=== PATIENT | female | born 1985 | race Caucasian/White ===

== ENCOUNTER → 2016-11-12 | Outpatient (REF) | payer OTHER ==
[~2016-11-12] MED LIST: /MOM400 PO; ACET50TA PO; ANUS2.5C2 TOP; DOCU10ELUD PO; IBUP600T26 PO; PRENTAB74 PO
== END ==
LOC: M SFHCWAGY 12:14
PROVIDERS: ATTEND Nurse Practitioner Family
DX: Z01.419 Encounter for gynecological examination (general) (routine) without abnormal findings (principal)

== ENCOUNTER → 2017-02-10 | Outpatient (CLI) | payer OTHER ==
[2017-02-10 18:13] LABS: FOLATE 20.2 NG/ML
[2017-02-10 19:31] LABS: FREE T4 0.88 NG/DL (0.76-1.46); THYROXINE (T4) 7.3 UG/DL (4.5-12.0)
== END ==
LOC: M WUC 13:51
PROVIDERS: ATTEND Psychiatry & Neurology Neurology
DX: Z13.29 Encounter for screening for other suspected endocrine disorder (principal); E53.9 Vitamin B deficiency, unspecified; R20.9 Unspecified disturbances of skin sensation

== ENCOUNTER 2017-10-30 09:21 | Day surgery (SDC) | payer OTHER ==
[2017-10-30 10:01] LABS: HEMATOCRIT 39.8 % (36.0-47.0); HEMOGLOBIN 13.6 g/dl (12.0-15.5); MEAN CORPUSCULAR HEMOGLOBIN 31.1 pg (27.0-33.0); MEAN CORPUSCULAR HGB CONC 34.2 g/dl (32.0-36.5); MEAN CORPUSCULAR VOLUME 90.9 fl (80.0-96.0); PLATELET COUNT, AUTOMATED 260 10^3/uL (150-450); RED BLOOD COUNT 4.38 10^6/uL (4.00-5.40); RED CELL DISTRIBUTION WIDTH 11.8 % (11.5-14.5); WHITE BLOOD COUNT 3.9 10^3/uL (4.0-10.0)
[2017-10-30 10:17] LABS: CONTROL LINE HCG INT CTR LINE PRESENT; HCG, SERUM QUALITATIVE NEGATIVE (NEGATIVE)
[2017-10-30] MEDS: LR 1,000 ML IV (10:39)
[2017-10-30] MEDS: BUPIVACAINE HCL 0.25% 30 ML VIAL As Ordered (10:40)
[2017-10-30] MEDS: ACETAMINOPHEN 650 MG SUPP As Ordered (10:57)
[2017-10-30] MEDS ORDERED: MIDAZOLAM INJ 2 MG/2 ML VIAL (J2250) As Ordered (11:17)
[2017-10-30] MEDS ORDERED: fentaNYL 100 MCG/2 ML INJECTION (J3010) As Ordered ×2 (11:44→11:48)
[2017-10-30] MEDS ORDERED: ONDANSETRON 4MG/2ML VIAL (J2405) As Ordered (11:48)
[2017-10-30] MEDS ORDERED: PROPOFOL 200 MG/20 ML VIAL As Ordered ×2 (11:48→12:05)
[2017-10-30] MEDS ORDERED: METOCLOPRAMIDE INJ 10MG/2ML VIAL (J2765) IV (12:45)
[2017-10-30] MEDS ORDERED: LR 1,000 ML IV (12:45)
[2017-10-30] MEDS ORDERED: ONDANSETRON 4MG/2ML VIAL (J2405) IV (12:45)
[2017-10-30] MEDS ORDERED: fentaNYL 100 MCG/2 ML INJECTION (J3010) IV (12:45)
[2017-10-30] MEDS ORDERED: PERCOCET 5MG/325MG TAB PO (12:45)
[2017-10-30] MEDS: PERCOCET 5MG/325MG TAB PO (13:15)
[2017-10-30] MEDS: KETOROLAC 30 MG/ML VIAL (J1885) IV (13:15)
== END 2017-10-30 14:15 | disposition home or self-care (01) ==
LOC: M SDC 09:21
DX: N80.6 Endometriosis in cutaneous scar (principal); F41.9 Anxiety disorder, unspecified; F32.9 Major depressive disorder, single episode, unspecified; Z79.899 Other long term (current) drug therapy
CPT/HCPCS: 13100

== ENCOUNTER → 2018-05-03 | Outpatient (CLI) | payer OTHER | LOC: M RAD 13:00 | DX: N92.4 Excessive bleeding in the premenopausal period (principal) | CPT/HCPCS: 76801 ==

== ENCOUNTER → 2018-05-04 | Outpatient (CLI) | payer OTHER ==
[2018-05-05 08:54] LABS: AB SCREEN (INDIRECT COOMBS)VIS 1 1
== END ==
LOC: M WUC 12:32
DX: O20.0 Threatened abortion (principal); Z3A.00 Weeks of gestation of pregnancy not specified
CPT/HCPCS: 36415

== ENCOUNTER → 2018-05-19 | Outpatient (CLI) | payer OTHER ==
[2018-05-19 18:34] LABS: BASO % 0.4 % (0.0-1.0); EOS # 0.1 10^3/uL (0.0-0.50); EOS % 1.2 % (0.0-3.0); HEMATOCRIT 39.2 % (36.0-47.0); HEMOGLOBIN 13.3 g/dl (12.0-15.5); IMMATURE GRANULOCYTE % 0.4 % (0-3.0); LYMPH # 1.4 10^3/uL (1.5-4.5); LYMPH % 20.3 % (24.0-44.0); MEAN CORPUSCULAR HEMOGLOBIN 32.4 pg (27.0-33.0); MEAN CORPUSCULAR HGB CONC 33.9 g/dl (32.0-36.5); MEAN CORPUSCULAR VOLUME 95.4 fl (80.0-96.0); MONO # 0.5 10^3/uL (0.0-0.8); NEUTROPHILS # 4.7 10^3/uL (1.8-7.7); NEUTROPHILS % 69.7 % (36.0-66.0); PLATELET COUNT, AUTOMATED 218 10^3/uL (150-450); RED BLOOD COUNT 4.11 10^6/uL (4.00-5.40); RED CELL DISTRIBUTION WIDTH 11.9 % (11.5-14.5); WHITE BLOOD COUNT 6.8 10^3/uL (4.0-10.0)
[2018-05-19 20:52] LABS: CHLAMYDIA DNA AMPLIFICATION NEGATIVE (NEGATIVE); GC DNA AMPLIFICATION NEGATIVE (NEGATIVE)
[2018-05-20 13:13] LABS: HIV 1&2 SCREEN CENTAUR NEGATIVE (NEGATIVE); RUBELLA IgG QUALITATIVE IMMUNE (IMMUNE)
[2018-05-21 10:22] LABS: HEPATITIS C VIRUS ABY INDEX < 0.0 INDEX (<0.8)
[2018-05-21 10:22] LABS: HBsAg Prenatal NEGATIVE (NEGATIVE)
== END ==
LOC: M SMT 14:12
DX: Z34.81 Encounter for supervision of other normal pregnancy, first trimester (principal); Z36.89 Encounter for other specified antenatal screening; Z3A.10 10 weeks gestation of pregnancy
CPT/HCPCS: 86762

== ENCOUNTER → 2018-06-18 | Outpatient (CLI) | payer OTHER | LOC: M RAD 10:30 | DX: O26.31 Retained intrauterine contraceptive device in pregnancy, first trimester (principal); Z97.5 Presence of (intrauterine) contraceptive device | CPT/HCPCS: 74019 ==

== ENCOUNTER 2018-06-22 12:18 | Day surgery (SDC) | payer OTHER ==
[2018-06-22] MEDS: LR 1,000 ML IV (12:30)
[2018-06-22 12:50] LABS: HEMATOCRIT 41.4 % (36.0-47.0); HEMOGLOBIN 14.3 g/dl (12.0-15.5); MEAN CORPUSCULAR HEMOGLOBIN 31.7 pg (27.0-33.0); MEAN CORPUSCULAR HGB CONC 34.5 g/dl (32.0-36.5); MEAN CORPUSCULAR VOLUME 91.8 fl (80.0-96.0); PLATELET COUNT, AUTOMATED 190 10^3/uL (150-450); RED BLOOD COUNT 4.51 10^6/uL (4.00-5.40); RED CELL DISTRIBUTION WIDTH 11.5 % (11.5-14.5); WHITE BLOOD COUNT 4.2 10^3/uL (4.0-10.0)
[2018-06-22] MEDS ORDERED: PROPOFOL 200 MG/20 ML VIAL As Ordered (13:31)
[2018-06-22] MEDS ORDERED: dexameTHASONE 4 MG/ML 1ML VIAL (J1100) As Ordered (13:32)
[2018-06-22] MEDS ORDERED: LIDOCAINE 2% INJ 100 MG/5 ML SDV (FOR ANES.) As Ordered (13:32)
[2018-06-22] MEDS ORDERED: KETOROLAC 60 MG/2 ML VIAL (J1885) As Ordered (13:32)
[2018-06-22] MEDS ORDERED: ONDANSETRON 4MG/2ML VIAL (J2405) As Ordered (13:32)
[2018-06-22] MEDS ORDERED: MIDAZOLAM INJ 2 MG/2 ML VIAL (J2250) As Ordered (13:32)
[2018-06-22] MEDS ORDERED: fentaNYL 100 MCG/2 ML INJECTION (J3010) As Ordered ×2 (13:34→14:11)
[2018-06-22] MEDS: LIDOCAINE 1% SDV INJ 30 ML VIAL As Ordered (14:28)
[2018-06-22] MEDS ORDERED: ONDANSETRON 4MG/2ML VIAL (J2405) IV (15:00)
[2018-06-22] MEDS ORDERED: fentaNYL 100 MCG/2 ML INJECTION (J3010) IV (15:00)
[2018-06-22] MEDS ORDERED: LR 1,000 ML IV ×2 (15:00)
[2018-06-22] MEDS: ACETAMINOPHEN 500 MG TAB PO (15:05)
[2018-06-22] MEDS: DOXYCYCLINE HYCLATE 100 MG TAB PO (15:40)
== END 2018-06-22 16:00 | disposition home or self-care (01) ==
LOC: M SDC 16:00
DX: O02.1 Missed abortion (principal); K21.9 Gastro-esophageal reflux disease without esophagitis; F41.9 Anxiety disorder, unspecified; F32.9 Major depressive disorder, single episode, unspecified; Z79.899 Other long term (current) drug therapy
CPT/HCPCS: 59820

== ENCOUNTER 2019-05-24 06:05 | Day surgery (SDC) | payer OTHER ==
[~2019-05-24] VITALS: Ht 157.5 cm; Wt 88.0 kg
[2019-05-24] VITALS (7 sets, daily range): BP systolic 112–137; BP diastolic 55–83
[~2019-05-24 06:05] MED LIST changes: -/MOM400 PO; -ACET50TA PO; -DOCU10ELUD PO; +DOCU5LIQ PO; +HEPARIN SOD (PORCINE) 5000 UNITS/ML VIAL SQ ONE; +LR 1,000 ML IV ONE; +MAPA500T17 PO; +MILK10SU PO; +ORTH1TAB8 PO; +PERC5TAB12 PO; +TRAZ-252 PO; +VITA1TAB27 PO; +ZOLO100T PO; +ceFAZolin SOD 1 GM in D5W MINI-BAG PLUS 50 ML IV ONE
[2019-05-24] MEDS ORDERED: IBUP200C25 PO (06:50)
[2019-05-24] MEDS ORDERED: ALL10TAB2 PO (06:50)
[2019-05-24] MEDS ORDERED: LIDOCAINE 2% INJ 100 MG/5 ML SDV (FOR ANES.) As Ordered ONE (06:57)
[2019-05-24] MEDS ORDERED: dexameTHASONE 4 MG/ML 1ML VIAL (J1100) As Ordered ONE (06:57)
[2019-05-24] MEDS ORDERED: ONDANSETRON 4MG/2ML VIAL (J2405) As Ordered ONE (06:57)
[2019-05-24] MEDS ORDERED: ROCURONIUM BROMIDE 50 MG/5 ML VIAL As Ordered ONE ×3 (06:57→09:16)
[2019-05-24] MEDS ORDERED: PROPOFOL 200 MG/20 ML VIAL As Ordered ONE (06:57)
[2019-05-24] MEDS ORDERED: fentaNYL 250 MCG/5 ML INJECTION (J3010) As Ordered ONE (07:00)
[2019-05-24] MEDS ORDERED: MIDAZOLAM INJ 2 MG/2 ML VIAL (J2250) As Ordered ONE (07:01)
[2019-05-24] MEDS ORDERED: LIDOCAINE 1% MDV 20ML VIAL As Ordered ONE (07:15)
[2019-05-24] MEDS ORDERED: BACITRACIN PWD 50,000 UNITS VIAL As Ordered ONE (07:15)
[2019-05-24] MEDS ORDERED: EPINEPHrine INJ 1 MG/ML 1ML AMP As Ordered ONE (07:15)
[2019-05-24] MEDS ORDERED: BUPIVACAINE LIPOSOME/PF 1.3% 20ML VIAL (13.3MG/ML)(EXPAREL)(C9290 PER1MG) As Ordered ONE (07:15)
[2019-05-24] MEDS ORDERED: LACRILUBE (AKWA TEARS) OPHTH OINT 3.5 GM As Ordered ONE (07:54)
[2019-05-24] MEDS ORDERED: ACETAMINOPHEN 1000MG 100ML IV BTL (OFIRMEV) (J0131 PER 10MG) As Ordered ONE (07:55)
[2019-05-24] MEDS ORDERED: SUGAMMADEX SODIUM 500 MG/5 ML VIAL (BRIDION) As Ordered ONE (08:51)
[2019-05-24] MEDS ORDERED: ePHEDrine SULFATE 25 MG/5 ML(5MG/ML) SYRINGE As Ordered ONE (09:52)
[2019-05-24] MEDS ORDERED: fentaNYL 100 MCG/2 ML INJECTION (J3010) As Ordered ONE (10:06)
[2019-05-24] MEDS ORDERED: HYDROmorphone HCL 2 MG/ML 1ML VIAL (J1170) As Ordered ONE (10:38)
[2019-05-24] MEDS ORDERED: ONDANSETRON 4MG/2ML VIAL (J2405) IV PRN ×2 (11:00→12:00)
[2019-05-24] MEDS ORDERED: LR 1,000 ML IV SCH (11:00)
[2019-05-24] MEDS ORDERED: HYDROMORPHONE HCL 0.5 MG/ 0.5 ML SYRINGE (J1170 PER 1) IV PRN (11:00)
--- NOTE | 2019-05-24 11:05 | POST-OPPD ---
Postoperative Procedure Note Date Of Procedure: May 24, 2019 PREOPERATIVE DIAGNOSIS: Symptomatic macromastia POSTOPERATIVE DIAGNOSIS: same FINDINGS: Large breasts PROCEDURE: Bilateral breast reduction SURGEON: Dr Madrid FITTER'S ASSISTANT: Dr Marin ANESTHESIA: General SPECIMENS: Right breast 758g, Left breast 773g ESTIMATED BLOOD LOSS: 100cc REPLACED: none DRAINS: 10 mm JÚNIOR drains x 2. COMPLICATIONS: none POSTOPERATIVE CONDITION: stable REJI MADRID DO May 24, 2019 11:05
[2019-05-24] MEDS: fentaNYL 100 MCG/2 ML INJECTION (J3010) IV PRN ×4 (11:25→11:40)
[2019-05-24] MEDS: PERCOCET 5MG/325MG TAB PO PRN ×4 (11:30→21:26)
[2019-05-24] MEDS: MORPHINE 4 MG/ML 1ML VIAL/SYRINGE (J2270) IV PRN ×3 (14:12→23:53)
[2019-05-24] MEDS: LR 1,000 ML IV SCH (14:12)
--- NOTE | 2019-05-24 14:19 | RO ---
aDATE OF OPERATION: 05/24/2019 PREOPERATIVE DIAGNOSIS: Symptomatic macromastia. POSTOPERATIVE DIAGNOSIS: Symptomatic macromastia. PROCEDURE: Bilateral breast reduction. ATTENDING SURGEON: Debbie Cabrera DO EARLY HEAD START TEACHER: Brandie Marin DO ANESTHESIA: General. SPECIMENS SENT: Right breast 758 grams and left breast 773 grams. BLOOD LOSS: 100 mL. No replacement needed. DRAINS: Two 10-mm Mihir-Aguilar drains. No complications. DESCRIPTION OF PROCEDURE: This is a 34-year-old female who has significant upper back pain and permanent changes with her posture due to her large breasts. The patient has failed with the medical management, and she wished to have her breasts surgically reduced. All risks and benefits and alternatives discussed with the patient in detail, and she is ready to proceed. On the day of surgery, she was marked in the upright position. Her nipple areolar complex from the sternal notch is 36 cm bilaterally. Inframammary fold (IMF) is at 22 cm. So, she was marked according to superomedial pedicle. Informed consent was confirmed, and then she was brought into the operating room. Placed in supine position. Preoperative antibiotics are given. Sequential stockings placed in the lower calves. General anesthesia was induced. She was prepped and draped in the usual sterile fashion. 5000 units of Heparin subcutaneous were given, as well. We started our procedure on the right side. The nipple areolar complex was outlined at 45-mm in diameter, and then we started our resection using electrocautery and pulsed electron avalanche knife (PEAK) cautery. The inferolateral portion of the breast was resected. Hemostasis was obtained using electrocautery, and then we continued taking the tissue off on the inferolateral portion. The pedicle was deepithelized using Lozano scissors. Pedicles had a good vascular condition with good perfusion, and then we irrigated the area, and 7 mL of Exparel was infiltrated about the pectoralis muscle. Then, we started our closing part for the procedure with started re-creating the breast mound at 22 cm from sternal notch. 0 Vicryl sutures were used to conform that mound. The pillars were closed with interrupted 3-0 Monocryl sutures. The vertical limb was 9 cm. The excess tissue was then measured and resected using Bovie and electrocautery and creating the horizontal incision. Then, the nipple areolar complex was set in place with interrupted 3-0 and 4-0 Monocryl sutures. A 10-mm Mihir-Aguilar drain was placed through the lateral portion of the horizontal incision. The closure was not completed yet. The breast was put together then we turned our attention to the left side. We have outlined our nipple areolar complex at 45 mm in diameter, and then resection started using a knife and then followed by electrocautery and PEAK cautery. Inferolateral portion of breast was removed and hemostasis obtained. The, the pedicle was deepithelialized using Lozano scissors, and 7 mL of Exparel was infiltrated into the breast tissue above the pectoralis muscle. Then, we turned pedicle superiorly, and the new breast mound was re-created at 22 cm from sternal notch. The pillars, we started closing with interrupted 3-0 Monocryl sutures. The vertical limb was measured at 9 cm. Excess tissue was measured and resected, creating the horizontal incision. A 10-mm Mihir-Aguilar drain placed through the lateral portion of the horizontal incision. The role of the junior sales assistant here is brief. The breast is very large and heavy, so for the support of the tissue and retraction and also at this point, we both started suturing at the same time with 3-0 Monocryl sutures closing, the junior sales assistant was closing on the right side with subcuticular sutures, and while I am finishing the left side, as well, putting 3-0 Monocryl sutures in the vertical limb and the horizontal limb, and the horizontal incision, and the nipple areolar complex was sutured with 3-0 Monocryl and 4-0 Monocryl and 5-0 plain gut suture. We used Prineo dressing for the inferior and vertical scars and then Xeroform for the nipple areolar complex. Also, with a bulky dressing and a surgical bra. The patient is extubated in the operating room without any difficulties and transferred to the recovery room in stable condition. JEISON
[2019-05-24] MEDS: ceFAZolin SOD 1 GM in D5W MINI-BAG PLUS 50 ML IV SCH ×2 (17:37→23:50)
[2019-05-25] VITALS: BP 107/62
[2019-05-25] MEDS: PERCOCET 5MG/325MG TAB PO PRN (01:34)
[2019-05-25] MEDS: LR 1,000 ML IV SCH (02:20)
[2019-05-25 04:00] VITALS: BP 100/64
[2019-05-25] MEDS ORDERED: PERCOCET 5MG/325MG TAB PO PRN (05:45)
--- NOTE | 2019-05-25 07:45 | IPNPDOC ---
Subjective General Date/Time Seen The patient was seen on 05/25/19 at 07:42. Subject Chief Complaint/History The patient is a 34-year-old female admitted with a reason for visit of Hypertrophy Of Breasts. S/p BBR POD 1. Doing well. No complains. Tolerating diet, pain controlled with PO meds. Current Medications Current Medications Current Medications Medications (Trade) Dose Ordered Sig/Joshua Route PRN Reason Start Time Stop Time Status Last Admin Dose Admin Cefazolin Sodium 1 gm/Dextrose 50 ml @ 100 mls/hr Q8H IV 05/24/19 16:00 05/25/19 00:29 DC 05/24/19 23:50 Fentanyl Citrate (Sublimaze) 25 mcg Q5MP PRN IV PAIN LEVEL 5-10 05/24/19 11:00 05/24/19 11:56 DC 05/24/19 11:40 Hydromorphone HCl (Dilaudid) 0.2 mg Q5MP PRN IV PAIN LEVEL 4-7 05/24/19 11:00 05/24/19 12:00 DC Lactated Ringer's 1,000 ml @ 75 mls/hr [id number] IV 05/24/19 13:00 05/24/19 14:12 Lactated Ringer's 1,000 ml @ 100 mls/hr Q10H IV 05/24/19 11:00 05/24/19 12:00 DC Morphine Sulfate (Morphine Sulfate Inj) 4 mg Q4HP PRN IV SEVERE PAIN 05/24/19 12:00 05/24/19 23:53 Ondansetron HCl (ZOFRAN INJection) 4 mg Q4H PRN IV NAUSEA 05/24/19 12:00 Ondansetron HCl (ZOFRAN INJection) 4 mg Q4HP PRN IV NAUSEA OR VOMITING 05/24/19 11:00 05/24/19 12:00 DC Oxycodone/ Acetaminophen (Percocet 5mg/ 325mg Tablet) 1 tab ASDIRECTED PRN PO PAIN LEVEL 1-4 05/24/19 11:00 05/24/19 12:00 DC 05/24/19 12:05 Oxycodone/ Acetaminophen (Percocet 5mg/ 325mg Tablet) 1 tab Q4HP PRN PO MODERATE PAIN 05/24/19 12:00 05/25/19 01:34 Oxycodone/ Acetaminophen (Percocet 5mg/ 325mg Tablet) 2 tab Q6HP PRN PO MODERATE PAIN (PS 5-7) 05/25/19 05:45 05/25/19 05:41 Allergies Coded Allergies: No Known Allergies (Unverified , 05/16/19) Objective Physical Examination Examination GENERAL APPEARANCE:Patient seen, laying in bed, awake, alert, and oriented. Com fortable, in no acute distress. SKIN: Warm and moist. BREAST: Symmetrical, soft. Incisions intact. NAC viable. JÚNIOR serosanguinous drainage minimal. HEENT: Normocephalic, atraumatic. [place] palpebral conjunctiva, anicteric sclerae. Lips and mucosa appear moist. LUNGS: Clear to auscultation bilaterally. No wheezing appreciated. HEART: No chest wall abnormalities. Regular rate and rhythm with no murmurs appreciated. Vital Signs Vital Signs Date Time Temp Pulse Resp B/P (MAP) Pulse Ox O2 Delivery O2 Flow Rate FiO2 05/25/19 06:11 18 05/25/19 04:00 98.3 79 100/64 (76) 95 Room Air 05/24/19 11:35 2 I&Os I&O- Last 24 Hours up to 6 AM 05/25/19 06:00 Intake Total 4620 ml Output Total 6845 ml Balance -2225 ml Impression Symptomatic macromastia S/p Breast reduction Recovering well. Stable for discharge Instructions given to patient and significant other. May use Percocet with IBPofen for pain at home. Rx sent No heavy lifting. F/up Plastic surgery. Plan / VTE VTE Prophylaxis Ordered?: Yes REJI MADRID DO May 25, 2019 07:45
[2019-05-25] MEDS ORDERED: PERCOCET PO (07:47)
== END 2019-05-25 09:05 | disposition home or self-care (01) ==
LOC: M SDC 06:05 → M PED 12:56 → M SDC 05-25 09:05
PROVIDERS: ATTEND Plastic Surgery Surgery of the Hand
DX: N62 Hypertrophy of breast (principal); K21.9 Gastro-esophageal reflux disease without esophagitis; F41.9 Anxiety disorder, unspecified; F32.9 Major depressive disorder, single episode, unspecified; D32.0 Benign neoplasm of cerebral meninges; N80.0 Endometriosis of uterus; Z79.899 Other long term (current) drug therapy; Z79.3 Long term (current) use of hormonal contraceptives; Z87.891 Personal history of nicotine dependence
CPT/HCPCS: 19318; 81025; 88305; C9290; J0131; J0690; J1100; J1170; J2250; J2270; J2405; J3010

== ENCOUNTER → 2019-09-13 | Outpatient (REF) | payer OTHER ==
[~2019-09-13] MED LIST changes: +ALL10TAB2 PO; -HEPARIN SOD (PORCINE) 5000 UNITS/ML VIAL SQ ONE; +IBUP200C25 PO; -LR 1,000 ML IV ONE; +PERCOCET PO; -ceFAZolin SOD 1 GM in D5W MINI-BAG PLUS 50 ML IV ONE
== END ==
LOC: M SFHCWAGY 12:53
PROVIDERS: ATTEND Specialist
DX: Z01.419 Encounter for gynecological examination (general) (routine) without abnormal findings (principal)

== ENCOUNTER → 2019-12-05 | Outpatient (CLI) | payer OTHER ==
[~2019-12-05] MED LIST changes: +IBUP-1022 PO; +OXYC1TAB23 PO
== END ==
LOC: M LABSMTC 09:26
PROVIDERS: ATTEND Anesthesiology
DX: Z01.812 Encounter for preprocedural laboratory examination (principal); Z11.59 Encounter for screening for other viral diseases
CPT/HCPCS: C8903; U0002

== ENCOUNTER 2019-12-07 07:20 | Day surgery (SDC) | payer OTHER ==
[~2019-12-07] VITALS: Ht 157.5 cm; Wt 98.3 kg
[~2019-12-07 07:20] MED LIST changes: -IBUP-1022 PO; +LR 1,000 ML IV ONE; -OXYC1TAB23 PO
[2019-12-07 07:50] LABS: HEMATOCRIT 40.6 % (36.0-47.0); HEMOGLOBIN 13.7 g/dl (12.0-15.5); MEAN CORPUSCULAR HEMOGLOBIN 31.2 pg (27.0-33.0); MEAN CORPUSCULAR HGB CONC 33.7 g/dl (32.0-36.5); MEAN CORPUSCULAR VOLUME 92.5 fl (80.0-96.0); PLATELET COUNT, AUTOMATED 191 10^3/uL (150-450); RED BLOOD COUNT 4.39 10^6/uL (4.00-5.40); WHITE BLOOD COUNT 3.5 10^3/uL (4.0-10.0)
[2019-12-07] MEDS ORDERED: MIDAZOLAM INJ 2MG/2ML VIAL (J2250 PER 1MG) As Ordered ONE (07:53)
[2019-12-07] MEDS ORDERED: ROCURONIUM BROMIDE 50 MG/5 ML VIAL As Ordered ONE (07:53)
[2019-12-07] MEDS ORDERED: HYDROmorphone HCL 2 MG/ML 1ML VIAL (J1170) As Ordered ONE (07:53)
[2019-12-07] MEDS ORDERED: fentaNYL 100 MCG/2 ML INJECTION (J3010) As Ordered ONE (07:53)
[2019-12-07] MEDS ORDERED: LIDOCAINE 2% 100MG/5ML SDV (FOR ANES.) As Ordered ONE (07:53)
[2019-12-07] MEDS ORDERED: propofoL 200 MG/20 ML VIAL As Ordered ONE (07:53)
[2019-12-07] MEDS ORDERED: KETOROLAC 60 MG/2 ML VIAL As Ordered ONE (07:53)
[2019-12-07] MEDS ORDERED: dexameTHASONE 4 MG/ML 1ML VIAL (J1100 PER 1MG) As Ordered ONE (07:53)
[2019-12-07] MEDS ORDERED: ONDANSETRON 4MG/2ML VIAL As Ordered ONE (08:00)
[2019-12-07] MEDS ORDERED: SUGAMMADEX SODIUM 500 MG/5 ML VIAL (BRIDION) As Ordered ONE (08:00)
[2019-12-07] MEDS ORDERED: GLYCOPYRROLATE INJ 0.2 MG/ML 2 ML VIAL As Ordered ONE (08:04)
[2019-12-07] MEDS ORDERED: OXYC1TAB23 PO (08:42)
[2019-12-07] MEDS ORDERED: IBUP-1022 PO (08:43)
[2019-12-07] MEDS ORDERED: BUPIVACAINE HCL 0.25% 10ML VIAL As Ordered ONE (08:55)
[2019-12-07] MEDS ORDERED: ePHEDrine SULFATE 25 MG/5 ML(5MG/ML) SYRINGE As Ordered ONE (09:16)
[2019-12-07] MEDS ORDERED: ACETAMINOPHEN 1000MG 100ML IV BTL (OFIRMEV) (J0131 PER 10MG) As Ordered ONE (09:17)
[2019-12-07] MEDS ORDERED: LR 1,000 ML IV SCH ×2 (10:15→10:30)
[2019-12-07] MEDS ORDERED: ONDANSETRON 4MG/2ML VIAL IV PRN (10:30)
[2019-12-07] MEDS ORDERED: PERCOCET 5MG/325MG TAB PO PRN (10:30)
[2019-12-07] MEDS ORDERED: fentaNYL 100 MCG/2 ML INJECTION (J3010) IV PRN (10:30)
[2019-12-07 10:45] VITALS: BP 117/72
--- NOTE | 2019-12-09 17:59 | RO ---
DATE OF OPERATION: 12/07/2019 PREOPERATIVE DIAGNOSES: Menorrhagia, undesired fertility. POSTOPERATIVE DIAGNOSES: Menorrhagia, undesired fertility. PROCEDURE: Laparoscopic bilateral salpingectomy, hysteroscopy, dilation and curettage (D and C), NovaSure endometrial ablation. SURGEON: Abraham Burns MD CONTRACTING ENGINEER: ANESTHESIA: General endotracheal. ESTIMATED BLOOD LOSS: 10 mL. URINE OUTPUT: 100 mL. FINDINGS: Normal uterus, fallopian tubes, and ovaries. Normal upper abdomen. DESCRIPTION OF PROCEDURE: Operative summary: The patient was taken to the operating room where general endotracheal anesthesia was induced. She was prepped and draped in sterile fashion in the dorsal lithotomy position. Bladder was emptied with a catheter. A sponge stick was placed in the vagina to use as a manipulator. Periumbilical incision was made with a scalpel. A Veress needle was placed through this incision while tenting up on the skin of the abdomen. Intra-abdominal location of the Veress needle was assessed with the use of a saline-filled syringe. A pneumoperitoneum was created. The Veress needle was removed. A 5-mm trocar using Cyvera was inserted through this incision. A 5- and 8-mm suprapubic port, respectively, were placed under direct visualization. The patient was placed in Trendelenburg position. Both fallopian tubes were elevated with grasping instrument. LigaSure device was used to coagulate and incise broad ligament attachments to the tubes. Both tubes were amputated near their origin. Both tubes were removed through the suprapubic ports. Pneumoperitoneum was released. All instruments removed. Skin was closed with #4-0 Monocryl subcuticular sutures. Attention was turned to the vagina. A speculum was placed in the vagina. The anterior lip of the cervix grasped with tenaculum and cervix was dilated with tapered dilators. Diagnostic hysteroscope was used with normal saline as a distention media was placed through the internal os. Visualization of the endometrial cavity revealed the findings noted above. The endometrial cavity appeared normal. Hysteroscope was removed. Sharp curettage was performed. A NovaSure device was assembled and found to be in working order. Cavity length was calculated at 4.0 cm. The device was inserted, cavity width was calculated at 3.8 cm. Total power setting was 84 corley. Successful cavity assessment was performed. Coagulation was initiated. Total coagulation time was 1 minute 19 seconds. The NovaSure device was removed. Hysteroscope was placed back into the endometrium, and excellent anticoagulation effect was noted throughout the endometrium with sparing of the cervix. All instruments removed. Sponge, instrument, and needle counts were correct. The patient went to the recovery room in stable condition.
== END 2019-12-07 11:19 | disposition home or self-care (01) ==
LOC: M SDC 07:20
PROVIDERS: ATTEND Specialist
DX: N85.8 Other specified noninflammatory disorders of uterus (principal); Z30.2 Encounter for sterilization; N92.0 Excessive and frequent menstruation with regular cycle; K21.9 Gastro-esophageal reflux disease without esophagitis; F41.9 Anxiety disorder, unspecified; F32.9 Major depressive disorder, single episode, unspecified; D32.9 Benign neoplasm of meninges, unspecified; Z79.899 Other long term (current) drug therapy; Z79.3 Long term (current) use of hormonal contraceptives
CPT/HCPCS: 36415; 58563; 58661; 81025; 85027; 88302; 88305; J0131; J1100; J1170; J1885; J2250; J2405; J3010

== ENCOUNTER → 2020-06-25 | Outpatient (CLI) | payer OTHER ==
[~2020-06-25] MED LIST changes: +IBUP-1022 PO; -LR 1,000 ML IV ONE; +OXYC1TAB23 PO
--- NOTE | 2020-06-25 15:50 | REP ---
INDICATION: S/P SHON BREAST REDUCTION 06/08 RT LUMP NAC. 12 o'clock position. COMPARISON: None. No comparison mammography or sonography. TECHNIQUE: Targeted sonography. Area of the palpable lump 12 o'clock position right breast. FINDINGS: Somewhat heterogeneous fibroglandular background echotexture is seen. At 12 o'clock, there is a complex structure measuring 2.9 x 4.3 x 2.2 cm oval in shape with its long axis parallel to the skin. This has isoechoic and slightly hyperechoic components. This is not a simple cyst. Also noted in the axillary soft tissues is a normal-appearing lymph node with a echogenic hilus and a very thin cortical margin less than 1 mm. This is 2.8 cm in greatest diameter. IMPRESSION: 4.3 cm oval-shaped heterogeneous predominantly solid mass at the site of the palpable lump. This is nonspecific and could reflect benign lesion such as hamartoma or conceivably fat necrosis. It is not a simple cyst and does not have specific benign features. Ultrasound-guided needle biopsy is recommended. BI-RADS category is felt to be best assigned as category 4 suspicious right breast sonography findings. <Electronically signed by Saul Whitley > 06/25/20 [id number]
== END ==
LOC: M WHC 14:23
PROVIDERS: ATTEND Plastic Surgery Surgery of the Hand
DX: N64.89 Other specified disorders of breast (principal); N62 Hypertrophy of breast

== ENCOUNTER → 2020-07-10 | Outpatient (CLI) | payer OTHER, MEDICAID ==
--- NOTE | 2020-07-10 14:56 | REP ---
INDICATION: FAT NECROSIS OF BREAST , HYPERTROPHY OF BREAST. COMPARISON: Ultrasound 06/25/2020. TECHNIQUE: MLO, mL and CC views of the right breast are performed with tomosynthesis. FINDINGS: Mild scattered fibroglandular tissue is present. Near the nipple in the upper inner aspect of the right breast there is a fatty nodule with mildly irregular margins slightly greater than 2 cm in diameter. This is at the site of the patient's palpable lump. Recent ultrasound showed heterogeneous tissue at that location. No other mass or suspicious clusters of microcalcifications are seen. IMPRESSION: BIRADS/ACR category 2 benign. At the site of the palpable lump is a fat containing nodule most consistent with fat necrosis due to recent breast reduction surgery. The last clinical breast exam was June 2020. [place] breast density a. This mammogram was interpreted with the aid of an FDA-approved computer-aided detection system. The patient letter being requested is M2. RECOMMENDATION: Clinical follow-up. <Electronically signed by Cristino Alegria > 07/10/20 [id number]
== END ==
LOC: M WHC 13:56
PROVIDERS: ATTEND Plastic Surgery Surgery of the Hand
DX: N64.1 Fat necrosis of breast (principal); N62 Hypertrophy of breast
CPT/HCPCS: 77065; G0279

== ENCOUNTER → 2020-08-01 | Outpatient (CLI) | payer OTHER ==
[2020-08-01 10:01] VITALS: BP 138/88
--- NOTE | 2020-08-01 10:20 | REP ---
INDICATION: N63.10 RT BREAST MASS,POST US GUIDED BIOPSY. COMPARISON: 07/10/2020. TECHNIQUE: ML and CC views right breast performed. FINDINGS: Biopsy clip is seen within the fat containing nodule in the anterior right breast. IMPRESSION: Biopsy clip is seen within the fat containing nodule in the anterior right breast. RECOMMENDATION: Clinical follow-up. <Electronically signed by Cristino Alegria > 08/01/20 [id number]
--- NOTE | 2020-08-01 10:21 | REP ---
INDICATION: N63.10 RT BREAST MASS,US GUIDED BIOPSY. COMPARISON: 06/25/2020. TECHNIQUE: Real-time sonographic evaluation of right breast performed. FINDINGS: Ultrasound guidance was provided for Dr. Marin who performed ultrasound-guided biopsy of an area in the right retroareolar region. IMPRESSION: Ultrasound guidance provided for Dr. Marin for ultrasound guided biopsy of right retroareolar region. RECOMMENDATION: Clinical follow-up. <Electronically signed by Cristino Alegria > 08/01/20 [id number]
--- NOTE | 2020-08-04 20:55 | ROOPDOC ---
[facility] Report Of Operation Report of Operation DATE OF PROCEDURE: 08/01/20 DIAGNOSIS: right breast suspicious lesion PROCEDURE: Ultrasound guided biopsy of right breast palpable lesion with clip placement SURGEON: Frances Eldridge BLOOD LOSS: minimal COMPLICATIONS: none Lidocaine 1% LOT [id number] Expiration 10/10 Sodium Bicarbonate 8.4% LOT [id number] Expiration 05/09 Hydromark clip LOT [id number] Expiration 05/11 SHAPE 4 Bx device: BARD [id number] x10 cm LOT [id number] Expiration 03/11 Informed consent was obtained. The most common risk and possible complications including bleeding, hematoma, bruising, infection, injury to surrounding structures were explained to the patient and the patient expressed understand ing. Patient was placed on the bed in the supine position. Appropriate time out was done stating patients name, date of , and the procedure to be performed. The right breast was prepped and draped in the usual fashion. The ultrasound was used to confirm the location of the lesion in the right breast at 12:00 in the periareolar region. Palpation was also used to bonifacio the extent of the mass. Patient previously confirmed that the marked area is the previously discussed right breast mass. Plain Lidocaine 1% and 8.4% sodium bicarbonate 10:1 mix was used to anesthetize the skin, the biopsy site and tissues along the anticipated biopsy tract. Small skin incision was made with blade number 11. BARD Marquee 14G cannula with introducer ([id number]) was inserted through the incision and advanced under the ultrasound guidance to position immediately adjacent to the lesion. Next, the i ntroducer was removed and BARD Marquee 14G biopsy device was places in the cannula. Pre-biopsy imaging, and post-biopsy imaging were captured. Five good core biopsies were taken at various levels of the lesion. Specimen was placed in formaldehyde, labeled with appropriate biopsy site and patients name, and sent to pathology for evaluation. Next, the biopsy device was withdrawn and a clip introducer was inserted into the biopsy site via the cannula. The SHAPE 4 Hydromark clip was deployed under sonographic guidance. Post-clip placement image was captured. Manual pressure over the biopsy cavity and tract was held after the clip in troducer was withdrawn. No bleeding was noted upon removal of the pressure. Post-biopsy mammogram of the right breast was obtained and showed clip in expected position. Postprocedural dressing was placed. Patient tolerated procedure well. Discharge instructions were discussed with the patient and the patient expressed understanding. FRANCES ELDRIDGE DO Aug 04, 2020 20:55
== END ==
LOC: M WHCPRO 07:59
PROVIDERS: ATTEND Surgery
DX: N60.21 Fibroadenosis of right breast (principal); N63.10 Unspecified lump in the right breast, unspecified quadrant

== ENCOUNTER → 2021-08-21 | Outpatient (CLI) | payer OTHER, MEDICAID ==
[2021-08-21 09:59] LABS: BASO % 0.8 % (0.0-1.0); EOS # 0.1 10^3/uL (0.0-0.5); EOS % 1.3 % (0.0-3.0); HEMATOCRIT 41.1 % (36.0-47.0); HEMOGLOBIN 13.6 g/dl (12.0-15.5); LYMPH # 1.2 10^3/uL (1.5-5.0); LYMPH % 30.6 % (24.0-44.0); MEAN CORPUSCULAR HEMOGLOBIN 30.7 pg (27.0-33.0); MEAN CORPUSCULAR HGB CONC 33.1 g/dl (32.0-36.5); MEAN CORPUSCULAR VOLUME 92.8 fl (80.0-96.0); MONO # 0.4 10^3/uL (0.0-0.8); MONO % 9.4 % (2.0-8.0); NEUTROPHILS # 2.3 10^3/uL (1.5-8.5); NEUTROPHILS % 57.6 % (36.0-66.0); PLATELET COUNT, AUTOMATED 239 10^3/uL (150-450); RED BLOOD COUNT 4.43 10^6/uL (4.00-5.40)
[2021-08-21 10:45] LABS: ALBUMIN 3.8 GM/DL (3.2-5.2); ALT/SGPT 18 U/L (12-78); BILIRUBIN,TOTAL 0.3 MG/DL (0.2-1.0); BLOOD UREA NITROGEN 14 MG/DL (7-18); CALCIUM LEVEL 9.1 MG/DL (8.5-10.1); CARBON DIOXIDE LEVEL 31 MEQ/L (21-32); CHLORIDE LEVEL 108 MEQ/L (98-107); CHOLESTEROL LEVEL 188 MG/DL (<200); CHOLESTEROL RISK RATIO 2.848 (<5); CREATININE FOR GFR 0.78 MG/DL (0.55-1.30); FREE T4 0.91 NG/DL (0.76-1.46); GLOMERULAR FILTRATION RATE > 60.0 (>60); GLUCOSE, FASTING 80 MG/DL (70-100); HDL CHOLESTEROL 66 MG/DL (>40); LDL CHOLESTEROL 113 MG/DL (<100); NON-HDL-C 122 MG/DL; POTASSIUM SERUM 4.2 MEQ/L (3.5-5.1); SODIUM LEVEL 142 MEQ/L (136-145); TOTAL 25(OH) VITAMIN D 30.3 NG/ML (30.0-100.0); TOTAL PROTEIN 6.9 GM/DL (6.4-8.2); TRIGLYCERIDES LEVEL 43 MG/DL (<150)
[2021-08-21 10:59] LABS: HEMOGLOBIN A1c 4.8 %
== END ==
LOC: M WUC 08:48
PROVIDERS: ATTEND Physician Assistant
DX: Z13.220 Encounter for screening for lipoid disorders (principal); Z13.29 Encounter for screening for other suspected endocrine disorder

== ENCOUNTER → 2021-10-24 | Outpatient (REF) | payer OTHER, MEDICAID | LOC: M LAB REF 19:51 | PROVIDERS: ATTEND Physician Assistant | DX: R50.9 Fever, unspecified (principal); R05.9 Cough, unspecified ==

== ENCOUNTER → 2023-03-30 | Outpatient (REF) | payer OTHER, MEDICAID | LOC: M LAB REF 11:34 | PROVIDERS: ATTEND Nurse Practitioner Family | DX: R30.0 Dysuria (principal); N39.0 Urinary tract infection, site not specified ==

== ENCOUNTER → 2023-11-19 | Outpatient (CLI) | payer OTHER, MEDICAID | LOC: M WUC 14:39 | PROVIDERS: ATTEND Physician Assistant | DX: M25.561 Pain in right knee (principal) ==

== ENCOUNTER → 2024-05-26 | Outpatient (CLI) | payer OTHER, MEDICAID ==
[2024-05-26 16:55] LABS: BASO % 0.6 % (0.0-1.0); EOS % 0.9 % (0.0-3.0); HEMATOCRIT 33.9 % (36.0-47.0); HEMOGLOBIN 10.7 g/dl (12.0-15.5); LYMPH # 1.5 10^3/uL (1.5-5.0); LYMPH % 31.6 % (24.0-44.0); MEAN CORPUSCULAR HEMOGLOBIN 26.9 pg (27.0-33.0); MEAN CORPUSCULAR HGB CONC 31.6 g/dl (32.0-36.5); MEAN CORPUSCULAR VOLUME 85.2 fl (80.0-96.0); MONO # 0.4 10^3/uL (0.0-0.8); MONO % 8.2 % (2.0-8.0); NEUTROPHILS # 2.7 10^3/uL (1.5-8.5); NEUTROPHILS % 58.3 % (36.0-66.0); PLATELET COUNT, AUTOMATED 254 10^3/uL (150-450); RED BLOOD COUNT 3.98 10^6/uL (4.00-5.40); WHITE BLOOD COUNT 4.7 10^3/uL (4.0-10.0)
[2024-05-26 17:20] LABS: ALBUMIN 3.7 G/DL (3.2-5.2); ALKALINE PHOSPHATASE 45 U/L (35-104); ALT/SGPT 13 U/L (7.0-40); AST/SGOT 9 U/L (<34); BILIRUBIN,TOTAL 0.5 MG/DL (0.3-1.2); BLOOD UREA NITROGEN 10 MG/DL (9-23); CALCIUM LEVEL 9.3 MG/DL (8.5-10.1); CARBON DIOXIDE LEVEL 28 MMOL/L (20-31); CHLORIDE LEVEL 107 MMOL/L (98-107); CHOLESTEROL LEVEL 193 MG/DL (<200); CHOLESTEROL RISK RATIO 3.36 (<5); CREATININE FOR GFR 0.85 MG/DL (0.55-1.30); GLOMERULAR FILTRATION RATE > 60.0 (>60); GLUCOSE, FASTING 76 MG/DL (60-100); HDL CHOLESTEROL 57.4 MG/DL (>40); LDL CHOLESTEROL 122.6 MG/DL (<100); NON-HDL-C 135.6 MG/DL; POTASSIUM SERUM 3.8 MMOL/L (3.5-5.1); SODIUM LEVEL 138 MMOL/L (136-145); TRIGLYCERIDES LEVEL 65 MG/DL (<150)
[2024-05-26 17:21] LABS: THYROID STIMULATING HORMONE 1.799 uIU/ML (0.55-4.78)
[2024-05-26 17:22] LABS: FREE T4 1.04 NG/DL (0.89-1.76); TOTAL 25(OH) VITAMIN D 31.3 NG/ML (20.0-100.0)
[2024-05-26 17:26] LABS: HEMOGLOBIN A1c 5.1 % (4.0-6.0)
== END ==
LOC: M WUC 14:22
PROVIDERS: ATTEND Physician Assistant
DX: Z13.9 Encounter for screening, unspecified (principal); Z13.220 Encounter for screening for lipoid disorders; E55.9 Vitamin D deficiency, unspecified

== ENCOUNTER → 2024-09-05 | Outpatient (CLI) | payer OTHER, MEDICAID ==
[2024-09-05 11:29] LABS: BASO % 0.7 % (0.0-1.0); EOS # 0.1 10^3/uL (0.0-0.5); EOS % 1.9 % (0.0-3.0); HEMOGLOBIN 11.3 g/dl (12.0-15.5); LYMPH # 1.3 10^3/uL (1.5-5.0); LYMPH % 30.2 % (24.0-44.0); MEAN CORPUSCULAR HEMOGLOBIN 26.1 pg (27.0-33.0); MEAN CORPUSCULAR HGB CONC 30.5 g/dl (32.0-36.5); MEAN CORPUSCULAR VOLUME 85.5 fl (80.0-96.0); MONO # 0.4 10^3/uL (0.0-0.8); NEUTROPHILS # 2.5 10^3/uL (1.5-8.5); PLATELET COUNT, AUTOMATED 284 10^3/uL (150-450); RED BLOOD COUNT 4.33 10^6/uL (4.00-5.40); WHITE BLOOD COUNT 4.3 10^3/uL (4.0-10.0)
[2024-09-05 11:56] LABS: ALBUMIN 3.5 G/DL (3.2-5.2); ALKALINE PHOSPHATASE 46 U/L (35-104); ALT/SGPT 15 U/L (7.0-40); AST/SGOT 10 U/L (<34); BILIRUBIN,TOTAL 0.4 MG/DL (0.3-1.2); BLOOD UREA NITROGEN 11 MG/DL (9-23); CALCIUM LEVEL 8.9 MG/DL (8.5-10.1); CARBON DIOXIDE LEVEL 30 MMOL/L (20-31); CHLORIDE LEVEL 104 MMOL/L (98-107); CREATININE FOR GFR 0.87 MG/DL (0.55-1.30); GLOMERULAR FILTRATION RATE > 60.0 (>60); GLUCOSE, FASTING 83 MG/DL (60-100); IRON (FE) 39 UG/DL (50-170); PERCENT SATURATION 11.8 % (13.2-45.0); POTASSIUM SERUM 4.1 MMOL/L (3.5-5.1); SODIUM LEVEL 143 MMOL/L (136-145); TOTAL IRON BINDING CAPACITY 331 UG/DL (250-425); TOTAL PROTEIN 6.6 G/DL (5.7-8.2)
[2024-09-05 11:57] LABS: TOTAL 25(OH) VITAMIN D 57.6 NG/ML (20.0-100.0); VITAMIN B12 LEVEL 719 PG/ML (211-911)
== END ==
LOC: M WUC 08:32
PROVIDERS: ATTEND Physician Assistant
DX: D64.9 Anemia, unspecified (principal); E55.9 Vitamin D deficiency, unspecified

== ENCOUNTER → 2025-04-25 | Outpatient (CLI) | payer OTHER ==
[~2025-04-25] MED LIST changes: -IBUP-1022 PO; +IBUP600T42 PO
[2025-04-25 18:01] LABS: ALT/SGPT 16.0 U/L (7.0-40); AST/SGOT 16.0 U/L (<34); CALCIUM LEVEL 9.1 MG/DL (8.5-10.1); CARBON DIOXIDE LEVEL 27.0 MMOL/L (20-31); CHLORIDE LEVEL 105.0 MMOL/L (98-107); CREATININE FOR GFR 0.87 MG/DL (0.55-1.30); GLOMERULAR FILTRATION RATE 87.4 (>60); IRON (FE) 72.0 UG/DL (50-170); PERCENT SATURATION 22.4 % (13.2-45.0); POTASSIUM SERUM 3.9 MMOL/L (3.5-5.1); SODIUM LEVEL 140.0 MMOL/L (136-145)
[2025-04-25 18:03] LABS: TOTAL 25(OH) VITAMIN D 40.2 NG/ML (20.0-100.0); VITAMIN B12 LEVEL 656.0 PG/ML (211-911)
[2025-04-25 18:05] LABS: BASO # 0.0 10^3/uL (0.0-0.2); BASO % 0.2 % (0.0-1.0); EOS # 0.0 10^3/uL (0.0-0.5); EOS % 0.7 % (0.0-3.0); LYMPH # 1.4 10^3/uL (1.5-5.0); LYMPH % 26.0 % (24.0-44.0); MONO # 0.5 10^3/uL (0.0-0.8); MONO % 8.3 % (2.0-8.0); NEUTROPHILS # 3.5 10^3/uL (1.5-8.5); NEUTROPHILS % 64.6 % (36.0-66.0); PLATELET COUNT, AUTOMATED 248 10^3/uL (150-450)
== END ==
LOC: M WUC 14:50
PROVIDERS: ATTEND Physician Assistant
DX: D50.9 Iron deficiency anemia, unspecified (principal); K21.9 Gastro-esophageal reflux disease without esophagitis; E55.9 Vitamin D deficiency, unspecified; D33.3 Benign neoplasm of cranial nerves